=== PATIENT | male | born 1985 | race African-American/Black ===

== ENCOUNTER 2020-10-22 04:17 | Emergency (ER) | payer OTHER ==
[2020-10-22 04:53] LABS: BASOPHIL 0.4 % (0-2); EOSINOPHIL 1.8 % (0-5); HCT 50.5 % (42.0-52.0); HGB 16.9 g/dl (13.2-18.0); LYMPHOCYTE 38.4 % (15-48); MCH 29.6 pg (25.0-31.0); MCHC 33.5 g/dL (32.0-36.0); MCV 88.4 fL (78.0-100.0); MONOCYTE 4.1 % (0-12); MPV 10.5 fL (6.0-9.5); NRBC 0; PLT 325 K/uL (150-400); RBC 5.71 M/uL (4.70-6.00); RDW 12.8 % (11.5-14.0)
[2020-10-22] MEDS ORDERED: XYZAL5 MG PO (04:57)
[2020-10-22 05:06] LABS: ALBUMIN 3.8 g/dL (3.4-5.0); BILIRUBIN - TOTAL 0.5 mg/dL (0.2-1.0); BUN/CREAT RATIO (CALC) 15.7 RATIO; CREATININE 1.08 mg/dL (0.67-1.17); GLOBULIN (CALCULATION) 3.6 g/dL; POTASSIUM 3.4 mmol/L (3.5-5.1); TOTAL PROTEIN 7.4 g/dL (6.4-8.2)
== END 2020-10-22 05:25 | disposition home or self-care (01) ==
LOC: FER 04:17
PROVIDERS: Internal Medicine
DX: L50.9 Urticaria, unspecified (principal); R73.9 Hyperglycemia, unspecified; E87.6 Hypokalemia; I10 Essential (primary) hypertension
CPT/HCPCS: 36415; 80053; 85025; J2930